=== PATIENT | female | born 1960 | race Caucasian/White ===

== ENCOUNTER 2025-09-27 12:56 | Outpatient (CLI) | payer BC | END 2025-09-27 12:57 | disposition home or self-care (01) | LOC: BICMAMMO 12:56 | PROVIDERS: ATTEND Internal Medicine | DX: Z13.820 Encounter for screening for osteoporosis (principal); M81.0 Age-related osteoporosis without current pathological fracture; M85.88 Other specified disorders of bone density and structure, other site | CPT/HCPCS: 77080 ==